=== PATIENT | male | born 1975 | race Caucasian/White ===

== ENCOUNTER 2024-10-10 14:52 | Inpatient (IN) | payer MEDICAID, SELFPAY ==
[2024-10-10 15:13] VITALS: BP 138/85; PULSE 87; RESP 20; TEMP 37.2; O2SAT 95; BMI 33.9
--- NOTE | 2024-10-10 15:20 | PC.NURSE ---
patient presents to ED via triage with his brother, brought back to pod for triage and change management analyst. patient changed over by ED security and this RN, patient changed into hospital attire. patient belongings secured and placed into locker 2. patient is calm and cooperative, states he was recently admitted at [facility] for inpatient psych care. patient states he was dc on haldol and depakote, states he is feeling increasingly anxious, which is making him feel hopeless and negatively impacting his life. patient was accompanied by his brother Rolando ([phone]) who gave collateral information that prior to inpatient hospitalization patient was manic and stating the tv was telling him things. patients brother explained patient left [facility]a from [facility] and got into his car and drove to [place]. while in [place] patient undressed himself and got into someones trailer that had a bed in it to keep warm patient was then brought to [facility]. patients brother is concerned that patient requested help today and stated he cant live like this anymore patient denied SI/HI, denies drug and alcohol use.
[2024-10-10 15:35] LABS: MANUAL DIFF FLAG NO
[2024-10-10 15:36] LABS: Basophils Absolute Auto 0.1 X10*3/uL (0.0-0.2); Basophils Percent Auto 0.8 % (0-2); Eosinophils Absolute Auto 0.1 X10*3/uL (0.0-0.4); Hematocrit 45.6 % (42.0-52.0); Hemoglobin 15.6 g/dl (14.0-18.0); Imm Gran Abs Auto 0.07 X10*3/uL (0.00-0.03); Imm Gran Pct Auto 0.6 % (0.0-0.4); Lymphocytes Absolute Auto 2.9 X10*3/uL (1.2-4.9); Lymphocytes Percent Auto 25.2 % (20-40); Mean Corpuscular HGB Conc 34.2 g/dl (31.0-36.0); Mean Corpuscular Hemoglobin 30.2 pg (27.0-33.0); Mean Corpuscular Volume 88.2 fL (80.0-98.0); Mean Platelet Volume 9.6 fL (9.4-12.4); Monocytes Absolute Auto 0.9 X10*3/uL (0.1-1.2); Monocytes Percent Auto 7.5 % (2-11); Neutrophils Absolute Auto 7.4 x10*3/uL (2.0-8.3); Neutrophils Percent Auto 64.9 % (45-73); Platelet Count 267 X10*3/uL (160-400); Red Blood Count 5.17 X10*6/uL (4.60-5.80); Red Cell Distribution Width 12.7 % (11.0-16.0); White Blood Count 11.4 X10*3/uL (4.8-10.8)
--- NOTE | 2024-10-10 15:40 | ED.PSYCH ---
HPI - Psych General Chief Complaint: Psychiatric Symptoms Stated Complaint: mental health Time Seen by Provider: 10/10/24 15:34 Source: patient Mode of arrival: ambulatory Limitations: no limitations History of Present Illness ED Provider: SCOTT Matthews HPI Narrative: This is a 49-year-old male history of meredith, bipolar disorder presents with concerns of anxiety, hopelessness and he feels like this is starting to affect his daily life. He reports he was recently inpatient at both [facility] and [facility] for manic episodes. This feels similar. Not suicidal or homicidal. Denies alcohol, tobacco, drugs. Denies any medical complaints. Related Data Allergies Allergy/AdvReac Type Severity Reaction Status Date / Time No Known Allergies Allergy Verified 10/10/24 15:18 [No Known Allergies*] Review of Systems Review of Systems: Yes all other systems are reviewed and are negative [facility] Past Medical History Attestation statement: The following information was validated with the patient. Source: old records reviewed and nursing notes reviewed Social History Social History Alcohol intake: never Smoked in Last 30 Days: No Use of substances other than those prescribed or required for medical reasons: No Advance Directives: No Advance Directives Information Provided: No Do you have a plan to hurt others: No Plan Physical Exam Vital Signs: Vital Signs: Last Vital Signs Temp 99 F 10/10/24 15:13 Pulse 87 10/10/24 15:13 Resp 20 10/10/24 15:13 BP 138/85 10/10/24 15:13 Pulse Ox 95 10/10/24 15:13 O2 Del Method Room Air 10/10/24 15:13 BMI result Body Mass Index 33.9 vss Appearance: Alert.? Oriented X3.? No acute distress.? Head: Normocephalic, atraumatic, no step-offs or deformities Eyes: Pupils equal, round and reactive to light.? ENT: Pharynx normal.? Neck: Normal inspection.? Neck supple.? CVS: Normal heart rate and rhythm.? Pulses normal.? Respiratory: No respiratory distress.? Breath sounds normal.? Abdomen: Soft and nontender.? Skin: Skin warm and dry.? Normal skin color.? Normal skin turgor.? Extremities: No lower extremity edema.? No calf ttp. 5/5 strength to bilateral upper and lower extremities Neuro: Oriented X 3.? No motor deficit.? No sensory deficit. CN 2-12 intact Course Reevaluation(s) Reevaluation #1: CBC with leukocytosis nonspecific and no left shift unlikely from infection this is likely reactive. Chemistry no acute findings eating intervention. Ethanol negative. Urine and urine toxicology pending. Time: 15:45 Reevaluation #2: UA clean. U tox + for marijuana. At this time patient will be placed in physician obs to allow more time to be evaluated by care team. Time: 16:56 Medications Administered Discontinued Medications Generic Name Dose Route Start Last Admin Trade Name Freq PRN Reason Stop Dose Admin Lorazepam 1 mg 10/10/24 16:16 10/10/24 16:26 Lorazepam 1 Mg Tablet PO 10/10/24 16:17 1 mg ONCE ONE Administration Medical Decision Making Medical Decision Making [facility] Narrative: 1543 49-year-old male presents with feeling anxious and hopeless multiple psych admissions recently. Physical exam benign History and physical exam concerning for meredith versus bipolar disorder versus schizophrenia versus anxiety and depression. Unlikely metabolic derangements. Plan medical clearance evaluation by care team Differential Diagnosis Differential Diagnoses: The differential diagnosis associated with the presentation includes (History and physical exam concerning for meredith versus bipolar disorder versus schizophrenia versus anxiety and depression. Unlikely metabolic derangements.) Admission/Observation Consideration of admission/observation: Escalation of care including admission/observation considered (possible ) Consult Healthcare Provider Management of the patient was discussed with: Behavioral Health Provider Lab Data [facility] Lab Attestation statement: I reviewed the patient's lab results. 10/10/24 15:29 10/10/24 15:29 Labs: Lab Results 10/10/24 10/10/24 Range/Units 15:29 15:36 WBC 11.4 H (4.8-10.8) X10*3/uL RBC 5.17 (4.60-5.80) X10*6/uL Hgb 15.6 (14.0-18.0) g/dl Hct 45.6 (42.0-52.0) % MCV 88.2 (80.0-98.0) fL MCH 30.2 (27.0-33.0) pg MCHC 34.2 (31.0-36.0) g/dl RDW 12.7 (11.0-16.0) % Plt Count 267 (160-400) X10*3/uL MPV 9.6 (9.4-12.4) fL Immature Gran % (Auto) 0.6 H (0.0-0.4) % Neut % (Auto) 64.9 (45-73) % Lymph % (Auto) 25.2 (20-40) % [place] % (Auto) 7.5 (2-11) % Eos % (Auto) 1.0 (0-4) % Baso % (Auto) 0.8 (0-2) % Lymph # (Auto) 2.9 (1.2-4.9) X10*3/uL [place] # (Auto) 0.9 (0.1-1.2) X10*3/uL Eos # (Auto) 0.1 (0.0-0.4) X10*3/uL Baso # (Auto) 0.1 (0.0-0.2) X10*3/uL Abs Immat Gran (auto) 0.07 H (0.00-0.03) X10*3/uL Absolute Neuts (auto) 7.4 (2.0-8.3) x10*3/uL Absolute Nucleated RBC 0.000 (0.0-0.012) X10*3/uL Nucleated RBC % (auto) 0.0 (0.0-0.2) /100WBC Sodium 140 (135-145) mmol/L Potassium 4.0 (3.3-5.1) mmol/L Chloride 107 (96-108) mmol/L Carbon Dioxide 22 (22-29) mmol/L Anion Gap 15 (12-20) BUN 8 L (9-16) mg/dL Creatinine 0.85 (0.5-1.4) mg/dL Estim Creat Clear Calc 138.1 Estimated GFR > 60 Random Glucose 91 (60-115) mg/dL Calcium 9.7 (8.4-10.2) mg/dL Total Bilirubin 0.7 (0.0-1.0) mg/dL AST 25 (5-37) U/L Total Protein 7.9 (6.5-8.0) g/dL Albumin 4.4 (3.5-5.0) g/dL Urine Color Yellow Urine Appearance Clear Urine pH 7.5 (5.0-9.0) Ur Specific [place] 1.020 (1.005-1.025) Urine Protein Negative (Neg-Trace) mg/dL Urine Glucose (UA) Negative (Negative) mg/dL Urine Ketones Trace (Negative) mg/dL Urine Blood Negative (Negative) Urine Nitrite Negative (Negative) Ur Leukocyte Esterase Negative (Negative) Urine Opiates Screen Not Detected (Not Detect) Ur Buprenorphine Scrn Not Detected (Not Detect) ng/mL Ur Oxycodone Screen Not Detected (Not Detect) ng/mL Urine Methadone Screen Not Detected (Not Detect) ng/mL Urine Fentanyl Screen Not Detected (Not Detect) Ur Barbiturates Screen Not Detected (Not Detect) Ur Phencyclidine Scrn Not Detected (Not Detect) Ur Amphetamines Screen Not Detected (Not Detect) U Benzodiazepines Scrn Not Detected (Not Detect) Urine Cocaine Screen Not Detected (Not Detect) U Marijuana (THC) Screen POSITIVE H (Not Detect) Ethyl Alcohol < 10 mg/dL Chronic Conditions Patient?s care impacted by: Other ( mental health d/o) Discharge Plan Discharge Clinical Impression: Depression, Acute anxiety Patient Disposition: Still a Patient Interventions: Mckean-Suicide Risk Severity Scale Last Done: 10/10/24 15:37 Print Language: Polish
--- NOTE | 2024-10-10 15:49 | MHC.EDTECH ---
late entry: pt changed over into [facility] gown, lab work drawn, urine given, vital signs taken
[2024-10-10 15:55] LABS: Appearance Urine Clear; Color Urine Yellow; Glucose Urine UA Negative (Negative); Leukocyte Esterase Urine Negative (Negative); Nitrite Urine Negative (Negative); PH 7.5 (5.0-9.0); Urine Blood Negative (Negative); Urine Ketones Trace mg/dL (Negative); Urine Protein Negative (Neg-Trace)
[2024-10-10 16:10] LABS: Amphetamine Screen Urine Not Detected (Not Detect); Barbiturates, Urine Not Detected (Not Detect); Benzodiazepines Screen Urine Not Detected (Not Detect); Buprenorphine Scr Not Detected (Not Detect); Cannabinoid Screen Urine POSITIVE (Not Detect); Cocaine Screen Urine Not Detected (Not Detect); Fentanyl, urine Not Detected (Not Detect); Methadone Screen, Urine Not Detected (Not Detect); Opiate Screen Urine Not Detected (Not Detect); Oxycodone Screen Urine Not Detected (Not Detect); Phencyclidine Screen Urine Not Detected (Not Detect)
[2024-10-10 16:22] LABS: Albumin Level 4.4 g/dL (3.5-5.0); Anion Gap 15 (12-20); Aspartate Amino Transferase 25 U/L (5-37); Bilirubin Total 0.7 mg/dL (0.0-1.0); Blood Urea Nitrogen 8 mg/dL (9-16); Calcium 9.7 mg/dL (8.4-10.2); Carbon Dioxide 22 mmol/L (22-29); Chloride 107 mmol/L (96-108); Creatinine Clr Calc Pharmacy 138.1; Estimated Glomerular Filt Rate > 60; Ethanol < 10 mg/dL; Glucose Random 91 mg/dL (60-115); Sodium 140 mmol/L (135-145); Total Protein 7.9 g/dL (6.5-8.0)
[2024-10-10] MEDS: LORazepam 1 MG TABLET PO (16:26)
--- NOTE | 2024-10-10 17:05 | PC.NURSE ---
attempted patient med rec, patient unsure of dosing. SCOTT pruitt aware, reaching out to [facility] for collateral info on patient
[2024-10-10 17:15] LABS: Alanine Aminotransferase 34 U/L (0-40); Alkaline Phosphatase 71 U/L (39-117)
[2024-10-10] MEDS: traZODone HCL 100 MG TABLET PO (20:20)
[2024-10-10] MEDS: diphenhydrAMINE HCL 25 MG CAPSULE 50 MG PO (22:22)
[2024-10-11 00:09] VITALS: BP 116/81; PULSE 72; RESP 16; TEMP 37.1; O2SAT 98
[2024-10-11] MEDS: LORazepam 1 MG TABLET 2 MG PO (00:43)
--- NOTE | 2024-10-11 06:04 | PC.NURSE ---
Patient just went to sleep at 0345, Ativan 2 mg administered with some effectiveness, appears depressed, med rec attempted but history unobtainable at this time, ED primary teaching assistant is trying to obtain medical record from [facility]. Patient was assessed by care team, disposition is section 12 inpatient bed search, 15 minutes safety check, no behavior and safety concerns, VSS, will continue to monitor
--- NOTE | 2024-10-11 07:07 | PC.NURSE ---
Assumed care of patient at 0645, patient appears to be sleeping, respirations even and unlabored, no apparent distress noted. Continue plan of care for IPLOC
[2024-10-11 14:00] VITALS: RESP 14
--- NOTE | 2024-10-11 14:05 | PC.NURSE ---
pt becoming agitated that he has been waiting since yesterday for a bed. this RN attempted to explain to this RN the bedsearch process however, patient began walking away. Patient states well, I am just going to refuse care and not do any of the things you all need me to do so I can get going . this RN educated patient regarding S12, pt frustrated that he is on a S12 stating that he did not know someone put him on one. Patient requesting to speak with a provider regarding leaving
[2024-10-11 15:30] VITALS: BP 122/81; PULSE 91; RESP 15; TEMP 36.9; O2SAT 95; BMI 37.8
[2024-10-11 17:07] LABS: Albumin Level 4.4 g/dL (3.5-5.0); Anion Gap 13 (12-20); Aspartate Amino Transferase 22 U/L (5-37); Bilirubin Total 0.7 mg/dL (0.0-1.0); Blood Urea Nitrogen 11 mg/dL (9-16); Calcium 9.6 mg/dL (8.4-10.2); Carbon Dioxide 27 mmol/L (22-29); Chloride 105 mmol/L (96-108); Estimated Glomerular Filt Rate > 60; Glucose Random 96 mg/dL (60-115); Potassium 4.1 mmol/L (3.3-5.1); Sodium 141 mmol/L (135-145); Total Protein 7.8 g/dL (6.5-8.0)
--- NOTE | 2024-10-11 18:01 | PC.NURSE ---
Pt arrived on the unit at 1523 via wheelchair. He is here on a CV. Pt was recently in [facility], left [place], and went to [place]. He was found in a trailer, sleeping in someone else's bed. During patient's admission, he was polite and difficult to engage. He had limited information for this physician underwriter. I am here because I can't sleep at night, and I have stopped taking care of myself because I can't get out of bed. Pt reports a recent 40lb weight loss, d/t depression. Nutritional consult placed. My head feels like thick soup . Skin check reveled no broken or marked skin. Flu shot refused. Med rec incomplete. Pt reports that his pharmacy is [facility], [facility]. That pharmacy reports that this patient has no RX's with them.
[2024-10-11 20:00] VITALS: RESP 18
[2024-10-11 21:33] LABS: Alanine Aminotransferase 35 U/L (0-40); Alkaline Phosphatase 72 U/L (39-117)
[2024-10-12 07:52] VITALS: BP 108/71; PULSE 85; RESP 14; TEMP 36.6; O2SAT 98
[2024-10-12 08:49] LABS: Cholesterol 165 mg/dL (<200); HDL Cholesterol 37 mg/dL (>40); LDL Cholesterol Calculated 103 mg/dL (<100); Triglycerides 128 mg/dL (<150)
--- NOTE | 2024-10-12 09:04 | HO.PSYADMNOT ---
HPI Date of Service: 10/12/24 Chief Complaint: crisis Sources of Information: patient interviewed, chart reviewed and crisis/core team assessment reviewed HPI Subjective Notes: Hu[place]h Warning and Conditional Voluntary Narrative: Patient is a 49-year-old male with history of unspecified mood disorder who self presented to [facility] ER due to increased anxiety, hopelessness secondary to recent medication changes. Per crisis report, patient was recently discharged from [facility] and was then admitted to [facility] inpatient unit for 2 weeks. Patient reports he was admitted twice recently due to manic behaviors . Patient's brother stated patient left [facility], got into his car and drove to [place]. While in [place], patient undressed himself and got into someone's trailer and went into their bed to keep warm; patient was then brought to [facility]. Patient reports he has been experiencing extreme anxiety, restlessness, shakiness since discharge. He reports poor sleep with only receiving 1-2 hours a night. denies SI/HI. No history of suicide attempts. Denies any substance use. Utox positive for cannabis. Per patient's brother, the past month is the 1st time patient began experiencing psychiatric symptoms. A month ago patient began sporadically posting status's that were bizarre online. Patient telling family that a movie told him to make a play. 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 He also began following police and punched and scratched a window on a police cruiser. Patient has numerous bizarre behaviors (please read crisis report for more examples). During admission assessment, patient presents alert and oriented x3. Calm and cooperative. Patient reports feeling anxious ; patient stated, I had a manic episode for 2 weeks. It was my 1st hospitalization; then I went to [place]. I went home and felt like I could not get my thoughts together. I just kept waking up with anxiety and depression. I then came here after reaching out to my family . Patient reports he can not recall any other names of the medications that he was previously prescribed at the other 2 hospitalizations. Prescription monitoring does not show any prescriptions. Patient is able to recall certain bizarre behaviors mentioned in crisis report however, reports he does not know why he behaved that way. Patient reports he does not have a history of a mental illness and symptoms began a month ago; he is unaware of any precipitant. Patient reports he does not have outpatient psychiatric providers. Denies SI/HI/VH/AH. Patient signed ITZ for [facility] and [facility] to obtain collateral. Past Psychiatric History: Two recent inpatient psychiatric admissions ([facility] and [facility]) Does not have outpatient psychiatric providers Currently not on any psychiatric medications Denies history of self-injurious behavior or suicide attempts. Medical Evaluation Reviewed: Yes PMFSH Family History: Denies Social History: Lives alone. . Two kids (12 and 25 y/o). Unemployed. Associates degree. Substance History: Denies Trauma History: Denies Diagnostics Vital Signs (24Hr): Vital Signs - 24 hr 10/11/24 14:00 10/11/24 15:30 10/11/24 20:00 Temperature 98.5 F Pulse Rate 91 Respiratory Rate 14 15 18 Blood Pressure 122/81 Pulse Oximetry 95 Oxygen Delivery Method Room Air 10/12/24 07:52 Temperature 97.9 F Pulse Rate 85 Respiratory Rate 14 Blood Pressure 108/71 Pulse Oximetry 98 Oxygen Delivery Method Room Air BMI result Body Mass Index 37.8 Labs 10/10/24 15:29 10/11/24 16:19 Labs: Laboratory Results - last 48 hr 10/10/24 10/10/24 10/11/24 15:29 15:36 16:19 WBC 11.4 H RBC 5.17 Hgb 15.6 Hct 45.6 MCV 88.2 MCH 30.2 MCHC 34.2 RDW 12.7 Plt Count 267 MPV 9.6 Immature Gran % (Auto) 0.6 H Neut % (Auto) 64.9 Lymph % (Auto) 25.2 [place] % (Auto) 7.5 Eos % (Auto) 1.0 Baso % (Auto) 0.8 Lymph # (Auto) 2.9 [place] # (Auto) 0.9 Eos # (Auto) 0.1 Baso # (Auto) 0.1 Abs Immat Gran (auto) 0.07 H Absolute Neuts (auto) 7.4 Absolute Nucleated RBC 0.000 Nucleated RBC % (auto) 0.0 Sodium 140 141 Potassium 4.0 4.1 Chloride 107 105 Carbon Dioxide 22 27 Anion Gap 15 13 BUN 8 L 11 Creatinine 0.85 0.97 Estim Creat Clear Calc 138.1 128.0 Estimated GFR > 60 > 60 Random Glucose 91 96 Calcium 9.7 9.6 Total Bilirubin 0.7 0.7 AST 25 22 ALT 34 35 Alkaline Phosphatase 71 72 Total Protein 7.9 7.8 Albumin 4.4 4.4 Triglycerides Cholesterol LDL Cholesterol, Calc HDL Cholesterol Urine Color Yellow Urine Appearance Clear Urine pH 7.5 Ur Specific [place] 1.020 Urine Protein Negative Urine Glucose (UA) Negative Urine Ketones Trace Urine Blood Negative Urine Nitrite Negative Ur Leukocyte Esterase Negative Urine Opiates Screen Not Detected Ur Buprenorphine Scrn Not Detected Ur Oxycodone Screen Not Detected Urine Methadone Screen Not Detected Urine Fentanyl Screen Not Detected Ur Barbiturates Screen Not Detected Ur Phencyclidine Scrn Not Detected Ur Amphetamines Screen Not Detected U Benzodiazepines Scrn Not Detected Urine Cocaine Screen Not Detected U Marijuana (THC) Screen POSITIVE H Ethyl Alcohol < 10 10/12/24 08:25 WBC RBC Hgb Hct MCV MCH MCHC RDW Plt Count MPV Immature Gran % (Auto) Neut % (Auto) Lymph % (Auto) [place] % (Auto) Eos % (Auto) Baso % (Auto) Lymph # (Auto) [place] # (Auto) Eos # (Auto) Baso # (Auto) Abs Immat Gran (auto) Absolute Neuts (auto) Absolute Nucleated RBC Nucleated RBC % (auto) Sodium Potassium Chloride Carbon Dioxide Anion Gap BUN Creatinine Estim Creat Clear Calc Estimated GFR Random Glucose Calcium Total Bilirubin AST ALT Alkaline Phosphatase Total Protein Albumin Triglycerides 128 Cholesterol 165 LDL Cholesterol, Calc 103 H HDL Cholesterol 37 L Urine Color Urine Appearance Urine pH Ur Specific [place] Urine Protein Urine Glucose (UA) Urine Ketones Urine Blood Urine Nitrite Ur Leukocyte Esterase Urine Opiates Screen Ur Buprenorphine Scrn Ur Oxycodone Screen Urine Methadone Screen Urine Fentanyl Screen Ur Barbiturates Screen Ur Phencyclidine Scrn Ur Amphetamines Screen U Benzodiazepines Scrn Urine Cocaine Screen U Marijuana (THC) Screen Ethyl Alcohol Meds/Allergies Meds Home Medications ?Medication ?Instructions ?Recorded ?Confirmed ?Type Unobtainable 10/11/24 10/11/24 History Allergies Allergies Allergy/AdvReac Type Severity Reaction Status Date / Time No Known Allergies Allergy Verified 10/10/24 15:18 [No Known Allergies*] Mental Status Exam Mental Status Exam Patient Appearance: Well Grooomed Patient Orientation: Person, Place, Time and Situation Level of Consciousness: Awake and Alert Patient Behavior: Appropriate, Cooperative, Anxious and Good Eye Contact Mood Description: Anxious Affect Description: Appropriate Ability to Follow Directions: Good Speech Pattern: Clear and Appropriate Thought Process: Goal Oriented Thought Content: positive for Goal Oriented Depressive Symptoms: Increased Anxiety and Difficulty Sleeping Judgement: Poor Assessment & Plan Assessment & Plan (1) Mood disorder: Status: Acute Code(s): F39 - Unspecified mood [affective] disorder Plan Patient is a 49-year-old male with history of unspecified mood disorder who self presented to [facility] ER due to increased anxiety, hopelessness secondary to recent medication changes. Plan: CV 15 minute safety checks Obtain collateral Start: [place] 300mg PO BID;risks/benefits reviewed. pt agreed to trial. Encourage groups Referral to outpatient psychiatric providers Discharge planning Patient educated on: diagnosis and medication risk/benefits Reason for continued inpatient stay Substantial Risk for: med/psych decompensation Statement Statement: I have reviewed the history and physical and performed a pertinent examination on my patient. No changes have occurred unless specified. If the History and Physical was not performed prior to admission, the Hospitalist's service will be consulted for completing the admission physical. Time Spent With Patient Time: Total time managing care of this patient today _60___ minutes.
[2024-10-12] MEDS: hydrOXYzine HCL 25 MG TABLET PO (12:14)
--- NOTE | 2024-10-12 13:49 | MHC.CLN ---
NUTRITION PATIENT REPORTED 40# WEIGHT LOSS. UNABLE TO CONFIRM WEIGHT LOSS. CURRENT DCDJWU=071.6 KG WITH BMI=37.8. RD WILL FOLLOW UP IN ONE WEEK FOR PO INTAKE.
[2024-10-12] MEDS: OLANZapine 5 MG TABLET PO (17:51)
[2024-10-12 19:50] VITALS: BP 125/72; PULSE 84; RESP 18; TEMP 36.4; O2SAT 97
[2024-10-12] MEDS: traZODone HCL 50 MG TABLET PO (20:07)
[2024-10-12] MEDS: Lithium Carbonate 300 MG CAPSULE PO (20:07)
[2024-10-13 08:00] VITALS: BP 123/77; PULSE 76; RESP 16; TEMP 36.4; O2SAT 98
[2024-10-13] MEDS: Lithium Carbonate 300 MG CAPSULE PO ×2 (09:04→21:52)
--- NOTE | 2024-10-13 11:24 | HO.PSYCHPN ---
Subjective Subjective Date of Service: 10/13/24 Reason For Visit: crisis Subjective Notes: Conditional Voluntary Interim History: Patient was seen and discussed in rounds today. Records and plans were reviewed. He is doing better, is more visible. He continues to endorse depression and anxiety. He is medication compliant. Eating and sleeping adequately. No complaints or side effects. No changes were made today Review of Systems Review of Systems Yes all other systems are reviewed and are negative Mental Status Exam Mental Status Exam Patient Appearance: Well Grooomed Patient Orientation: Person, Place, Time and Situation Level of Consciousness: Awake and Alert Patient Behavior: Appropriate, Cooperative, Anxious and Good Eye Contact Mood Description: Anxious Affect Description: Appropriate Ability to Follow Directions: Good Speech Pattern: Clear and Appropriate Thought Process: Goal Oriented Thought Content: positive for Goal Oriented Depressive Symptoms: Increased Anxiety and Difficulty Sleeping Judgement: Poor Diagnostics Vital Signs (24Hr): Vital Signs - 24 hr 10/12/24 19:50 10/13/24 08:00 Temperature 97.6 F 97.5 F Pulse Rate 84 76 Respiratory Rate 18 16 Blood Pressure 125/72 123/77 Pulse Oximetry 97 98 Oxygen Delivery Method Room Air Room Air BMI result Body Mass Index 37.8 Labs 10/10/24 15:29 10/11/24 16:19 Labs: Laboratory Results - last 48 hr 10/11/24 10/12/24 16:19 08:25 Sodium 141 Potassium 4.1 Chloride 105 Carbon Dioxide 27 Anion Gap 13 BUN 11 Creatinine 0.97 Estim Creat Clear Calc 128.0 Estimated GFR > 60 Random Glucose 96 Calcium 9.6 Total Bilirubin 0.7 AST 22 ALT 35 Alkaline Phosphatase 72 Total Protein 7.8 Albumin 4.4 Triglycerides 128 Cholesterol 165 LDL Cholesterol, Calc 103 H HDL Cholesterol 37 L Medications Medications Current Medications Acetaminophen (Acetaminophen 325 Mg Tablet) 650 mg PO Q6H PRN PRN Reason: Headache/Pain Mild Scale (1-3) Al Hydroxide/Mg Hydroxide (Magnesium Hydrox/Alum Hydrox 30 Ml Oral.Susp) 30 ml PO Q6H PRN PRN Reason: Heartburn/Nausea Hydroxyzine HCl (Hydroxyzine Hcl 25 Mg Tablet) 25 mg PO Q6H PRN PRN Reason: Anxiety Last Admin: 10/12/24 12:14 Dose: 25 mg [place] Carbonate ([place] Carbonate 300 Mg Capsule) 300 mg PO BID LEATHA Last Admin: 10/13/24 09:04 Dose: 300 mg Magnesium Hydroxide (Milk Of Magnesia 30 Ml Oral.Susp) 30 ml PO DAILY PRN PRN Reason: Constipation Nicotine Polacrilex (Nicotine Polacrilex 2 Mg Gum) 4 mg BUCCAL Q2H PRN PRN Reason: Nicotine Cravings Olanzapine (Olanzapine 5 Mg Tablet) 5 mg PO Q4H PRN PRN Reason: agitation Last Admin: 10/12/24 17:51 Dose: 5 mg Trazodone HCl (Trazodone Hcl 50 Mg Tablet) 50 mg PO BEDTIME MRX1 PRN PRN Reason: Insomnia Last Admin: 10/12/24 20:07 Dose: 50 mg Allergies Allergies Allergy/AdvReac Type Severity Reaction Status Date / Time No Known Allergies Allergy Verified 10/10/24 15:18 [No Known Allergies*] Assessment & Plan Assessment & Plan (1) Mood disorder: Status: Acute Code(s): F39 - Unspecified mood [affective] disorder Plan Patient is a 49-year-old male with history of unspecified mood disorder who self presented to [facility] due to increased anxiety, hopelessness secondary to recent medication changes. Plan: CV 15 minute safety checks Obtain collateral Start: [place] 300mg PO BID;risks/benefits reviewed. pt agreed to trial. Encourage groups Referral to outpatient psychiatric providers Discharge planning Reason for continued inpatient stay Substantial Risk for: med/psych decompensation Time Spent With Patient Time: Total time managing care of this patient today ____ minutes.
[2024-10-13 20:00] VITALS: BP 110/61; PULSE 74; RESP 16; TEMP 36.8; O2SAT 97
[2024-10-13] MEDS: traZODone HCL 50 MG TABLET PO (21:52)
[2024-10-14 07:00] VITALS: BMI 37.9
[2024-10-14 07:53] VITALS: BP 103/55; PULSE 76; RESP 16; TEMP 36.7; O2SAT 96
[2024-10-14] MEDS: Lithium Carbonate 300 MG CAPSULE PO (09:03)
[2024-10-14] MEDS: Lithium Carbonate ER 300 MG TABLET.ER PO (14:45)
[2024-10-14 19:43] VITALS: BP 118/72; PULSE 83; RESP 16; TEMP 36.2; O2SAT 97
--- NOTE | 2024-10-14 20:51 | HO.PSYCHPN ---
Subjective Subjective Date of Service: 10/14/24 Reason For Visit: crisis Interim History: calm, cooperative, pleasant. curious about his condition. education provided. agreeable to increase lithium to 600 BID. per staff, taking meds, pacing with headphones. Mental Status Exam Mental Status Exam Narrative: adequately dressed and groomed. cooperative. no PMA/PMR. speech nml rate, amount, loudness, tone, latency. thoughts linear and logical. affect constricted, normo-intense, non-labile. mood euthymic. no SI/HI/AVH expressed. Diagnostics Vital Signs (24Hr): Vital Signs - 24 hr 10/14/24 07:53 Temperature 98.0 F Pulse Rate 76 Respiratory Rate 16 Blood Pressure 103/55 L Pulse Oximetry 96 Oxygen Delivery Method Room Air BMI result Body Mass Index 37.9 Labs 10/10/24 15:29 10/11/24 16:19 Medications Medications Current Medications Acetaminophen (Acetaminophen 325 Mg Tablet) 650 mg PO Q6H PRN PRN Reason: Headache/Pain Mild Scale (1-3) Al Hydroxide/Mg Hydroxide (Magnesium Hydrox/Alum Hydrox 30 Ml Oral.Susp) 30 ml PO Q6H PRN PRN Reason: Heartburn/Nausea Hydroxyzine HCl (Hydroxyzine Hcl 25 Mg Tablet) 25 mg PO Q6H PRN PRN Reason: Anxiety Last Admin: 10/12/24 12:14 Dose: 25 mg [place] Carbonate ([place] Carbonate 300 Mg Capsule) 600 mg PO BID LEATHA Magnesium Hydroxide (Milk Of Magnesia 30 Ml Oral.Susp) 30 ml PO DAILY PRN PRN Reason: Constipation Nicotine Polacrilex (Nicotine Polacrilex 2 Mg Gum) 4 mg BUCCAL Q2H PRN PRN Reason: Nicotine Cravings Olanzapine (Olanzapine 5 Mg Tablet) 5 mg PO Q4H PRN PRN Reason: agitation Last Admin: 10/12/24 17:51 Dose: 5 mg Trazodone HCl (Trazodone Hcl 50 Mg Tablet) 50 mg PO BEDTIME MRX1 PRN PRN Reason: Insomnia Last Admin: 10/13/24 21:52 Dose: 50 mg Allergies Allergies Allergy/AdvReac Type Severity Reaction Status Date / Time No Known Allergies Allergy Verified 10/10/24 15:18 [No Known Allergies*] Assessment & Plan Assessment & Plan (1) Mood disorder: Status: Acute Code(s): F39 - Unspecified mood [affective] disorder Plan Patient is a 49-year-old male with history of unspecified mood disorder who self presented to [facility] [place] ER due to increased anxiety, hopelessness secondary to recent medication changes. 10/12: Start [place] 300mg PO BID;risks/benefits reviewed. pt agreed to trial. Referral to outpatient psychiatric providers. Discharge planning. 10/14: increase lithium to 600 BID to achieve therapeutic serum level. 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 Patient educated on: diagnosis and medication risk/benefits Reason for continued inpatient stay Substantial Risk for: inability to function and rapid decompensation Time Spent With Patient Time: Total time managing care of this patient today __35__ minutes.
[2024-10-14] MEDS: Lithium Carbonate 300 MG CAPSULE 600 MG PO (20:54)
[2024-10-14] MEDS: traZODone HCL 50 MG TABLET PO ×2 (20:55→22:07)
[2024-10-15 08:00] VITALS: BP 110/65; PULSE 88; RESP 16; TEMP 36.9; O2SAT 95
[2024-10-15] MEDS: Lithium Carbonate 300 MG CAPSULE 600 MG PO ×2 (09:04→20:23)
--- NOTE | 2024-10-15 13:28 | HO.PSYCHPN ---
Subjective Subjective Date of Service: 10/15/24 Reason For Visit: crisis Interim History: calm, cooperative, pleasant. thanks for lithium dose increase, says he feels clearer in the head. discuss plan to DC on 10/19, when 3-day notice is up, and check labs that morning. per staff, taking meds, slept 8 hours. Mental Status Exam Mental Status Exam Narrative: adequately dressed and groomed. cooperative. no PMA/PMR. speech nml rate, amount, loudness, tone, latency. thoughts linear and logical. affect flexible, normo-intense, non-labile. mood euthymic. no SI/HI/AVH expressed. Diagnostics Vital Signs (24Hr): Vital Signs - 24 hr 10/14/24 19:43 10/15/24 08:00 Temperature 97.2 F 98.4 F Pulse Rate 83 88 Respiratory Rate 16 16 Blood Pressure 118/72 110/65 Pulse Oximetry 97 95 Oxygen Delivery Method Room Air Room Air BMI result Body Mass Index 37.9 Labs 10/10/24 15:29 10/11/24 16:19 Medications Medications Current Medications Acetaminophen (Acetaminophen 325 Mg Tablet) 650 mg PO Q6H PRN PRN Reason: Headache/Pain Mild Scale (1-3) Al Hydroxide/Mg Hydroxide (Magnesium Hydrox/Alum Hydrox 30 Ml Oral.Susp) 30 ml PO Q6H PRN PRN Reason: Heartburn/Nausea Hydroxyzine HCl (Hydroxyzine Hcl 25 Mg Tablet) 25 mg PO Q6H PRN PRN Reason: Anxiety Last Admin: 10/12/24 12:14 Dose: 25 mg [place] Carbonate ([place] Carbonate 300 Mg Capsule) 600 mg PO BID LEATHA Last Admin: 10/15/24 09:04 Dose: 600 mg Magnesium Hydroxide (Milk Of Magnesia 30 Ml Oral.Susp) 30 ml PO DAILY PRN PRN Reason: Constipation Nicotine Polacrilex (Nicotine Polacrilex 2 Mg Gum) 4 mg [place]CCAL Q2H PRN PRN Reason: Nicotine Cravings Olanzapine (Olanzapine 5 Mg Tablet) 5 mg PO Q4H PRN PRN Reason: agitation Last Admin: 10/12/24 17:51 Dose: 5 mg Trazodone HCl (Trazodone Hcl 50 Mg Tablet) 50 mg PO BEDTIME MRX1 PRN PRN Reason: Insomnia Last Admin: 10/14/24 22:07 Dose: 50 mg Allergies Allergies Allergy/AdvReac Type Severity Reaction Status Date / Time No Known Allergies Allergy Verified 10/10/24 15:18 [No Known Allergies*] Assessment & Plan Assessment & Plan (1) Mood disorder: Status: Acute Code(s): F39 - Unspecified mood [affective] disorder Plan Patient is a 49-year-old male with history of unspecified mood disorder who self presented to [facility] due to increased anxiety, hopelessness secondary to recent medication changes. 10/12: Start [place] 300mg PO BID;risks/benefits reviewed. pt agreed to trial. Referral to outpatient psychiatric providers. Discharge planning. 10/14: increase lithium to 600 BID to achieve therapeutic serum level. 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 10/15: feeling improved on increased lithium dosing. continue current mgmt. check labs 10/19, likely DC same day as 3-day notice matures 10/19. Reason for continued inpatient stay Substantial Risk for: rapid decompensation Time Spent With Patient Time: Total time managing care of this patient today __25__ minutes.
[2024-10-15 19:17] VITALS: BP 119/80; PULSE 85; RESP 18; TEMP 36.7; O2SAT 97
[2024-10-16 08:00] VITALS: BP 113/71; PULSE 73; RESP 16; TEMP 36.6; O2SAT 96
[2024-10-16] MEDS: Lithium Carbonate 300 MG CAPSULE 600 MG PO ×2 (08:14→20:37)
--- NOTE | 2024-10-16 10:44 | P.PNPSI_ITS ---
Subjective Subjective Date of Service: 10/16/24 Reason For Visit: crisis Interim History: Patient seen and discussed. He is feeling thankful for the change in his medications and introduction of Li. It's so good when you get the right diagnosis and medications. He is calm, cooperative, pleasant. Per primary team, plan is to DC on 10/19 after Li level when 3-day notice is up, Slept 8 hours. No SI/AVH. Review of Systems Review of Systems Yes all other systems are reviewed and are negative Constitutional: Reports as per HPI Eyes: Reports as per HPI Reports as per HPI Cardiovascular: Reports as per HPI Respiratory: Reports as per HPI Gastrointestinal: Reports as per HPI Genitourinary: Reports as per HPI Musculoskeletal: Reports as per HPI Skin/Breast: Reports as per HPI Reports as per HPI Psychiatric: Reports as per HPI Endocrine: Reports as per HPI Hematologic/Lymphatic: Reports as per HPI Allergic/Immunologic: Reports as per HPI Mental Status Exam Mental Status Exam Narrative: adequately dressed and groomed. cooperative. no PMA/PMR. speech nml rate, amount, loudness, tone, latency. thoughts linear and logical. affect flexible, normo-intense, non-labile. mood euthymic. no SI/HI/AVH expressed. Patient Appearance: Well Grooomed Patient Orientation: Person, Place, Time and Situation Level of Consciousness: Awake and Alert Patient Behavior: Appropriate, Cooperative, Anxious and Good Eye Contact Mood Description: Anxious Affect Description: Appropriate Ability to Follow Directions: Good Speech Pattern: Clear and Appropriate Diagnostics Vital Signs (24Hr): Vital Signs - 24 hr 10/15/24 19:17 10/16/24 08:00 Temperature 98.1 F 97.9 F Pulse Rate 85 73 Respiratory Rate 18 16 Blood Pressure 119/80 113/71 Pulse Oximetry 97 96 Oxygen Delivery Method Room Air Room Air BMI result Body Mass Index 37.9 Labs 10/10/24 15:29 10/11/24 16:19 Medications Medications Current Medications Acetaminophen (Acetaminophen 325 Mg Tablet) 650 mg PO Q6H PRN PRN Reason: Headache/Pain Mild Scale (1-3) Al Hydroxide/Mg Hydroxide (Magnesium Hydrox/Alum Hydrox 30 Ml Oral.Susp) 30 ml PO Q6H PRN PRN Reason: Heartburn/Nausea Hydroxyzine HCl (Hydroxyzine Hcl 25 Mg Tablet) 25 mg PO Q6H PRN PRN Reason: Anxiety Last Admin: 10/12/24 12:14 Dose: 25 mg [place] Carbonate ([place] Carbonate 300 Mg Capsule) 600 mg PO BID LEATHA Last Admin: 10/16/24 08:14 Dose: 600 mg Magnesium Hydroxide (Milk Of Magnesia 30 Ml Oral.Susp) 30 ml PO DAILY PRN PRN Reason: Constipation Nicotine Polacrilex (Nicotine Polacrilex 2 Mg Gum) 4 mg BUCCAL Q2H PRN PRN Reason: Nicotine Cravings Olanzapine (Olanzapine 5 Mg Tablet) 5 mg PO Q4H PRN PRN Reason: agitation Last Admin: 10/12/24 17:51 Dose: 5 mg Trazodone HCl (Trazodone Hcl 50 Mg Tablet) 50 mg PO BEDTIME MRX1 PRN PRN Reason: Insomnia Last Admin: 10/14/24 22:07 Dose: 50 mg Allergies Allergies Allergy/AdvReac Type Severity Reaction Status Date / Time No Known Allergies Allergy Verified 10/10/24 15:18 [No Known Allergies*] Assessment & Plan Assessment & Plan (1) Mood disorder: Status: Acute Code(s): F39 - Unspecified mood [affective] disorder Plan Patient is a 49-year-old male with history of unspecified mood disorder who self presented to [facility] ER due to increased anxiety, hopelessness secondary to recent medication changes. 10/12: Start [place] 300mg PO BID;risks/benefits reviewed. pt agreed to trial. Referral to outpatient psychiatric providers. Discharge planning. 10/14: increase lithium to 600 BID to achieve therapeutic serum level. 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 10/15: feeling improved on increased lithium dosing. continue current mgmt. check labs 10/19, likely DC same day as 3-day notice matures 10/19. 10/16: Continue current management and treatment plan. Reason for continued inpatient stay Substantial Risk for: harm to self, inability to function and rapid decompensation Time Spent With Patient Time: Total time managing care of this patient today ____ minutes.
[2024-10-16 20:00] VITALS: BP 120/76; PULSE 89; RESP 18; TEMP 36.9; O2SAT 94
[2024-10-17 07:25] VITALS: BP 120/71; PULSE 75; RESP 14; TEMP 36.5; O2SAT 95
[2024-10-17] MEDS: Lithium Carbonate 300 MG CAPSULE 600 MG PO ×2 (08:12→20:32)
--- NOTE | 2024-10-17 10:00 | HO.PSYCHPN ---
Subjective Subjective Date of Service: 10/17/24 Reason For Visit: crisis Interim History: Patient seen and discussed. Remains stable and thankful for the care he has received and the medications he is taking. Feels improved. Calm, cooperative, pleasant, social with peers. Per primary team, plan is to DC on 10/19 after Li level when 3-day notice is up, Slept 8 hours. No SI/AVH. Review of Systems Review of Systems Yes all other systems are reviewed and are negative Constitutional: Reports as per HPI Eyes: Reports as per HPI Reports as per HPI Cardiovascular: Reports as per HPI Respiratory: Reports as per HPI Gastrointestinal: Reports as per HPI Genitourinary: Reports as per HPI Musculoskeletal: Reports as per HPI Skin/Breast: Reports as per HPI Reports as per HPI Psychiatric: Reports as per HPI Endocrine: Reports as per HPI Hematologic/Lymphatic: Reports as per HPI Allergic/Immunologic: Reports as per HPI Mental Status Exam Mental Status Exam Narrative: adequately dressed and groomed. cooperative. no PMA/PMR. speech nml rate, amount, loudness, tone, latency. thoughts linear and logical. affect flexible, normo-intense, non-labile. mood euthymic. no SI/HI/AVH expressed. Patient Appearance: Well Grooomed Patient Orientation: Person, Place, Time and Situation Level of Consciousness: Awake and Alert Patient Behavior: Appropriate, Cooperative, Anxious and Good Eye Contact Mood Description: Anxious Affect Description: Appropriate Ability to Follow Directions: Good Speech Pattern: Clear and Appropriate Diagnostics Vital Signs (24Hr): Vital Signs - 24 hr 10/16/24 20:00 10/17/24 07:25 Temperature 98.4 F 97.7 F Pulse Rate 89 75 Respiratory Rate 18 14 Blood Pressure 120/76 120/71 Pulse Oximetry 94 95 Oxygen Delivery Method Room Air Room Air BMI result Body Mass Index 37.9 Labs 10/10/24 15:29 10/11/24 16:19 Medications Medications Current Medications Acetaminophen (Acetaminophen 325 Mg Tablet) 650 mg PO Q6H PRN PRN Reason: Headache/Pain Mild Scale (1-3) Al Hydroxide/Mg Hydroxide (Magnesium Hydrox/Alum Hydrox 30 Ml Oral.Susp) 30 ml PO Q6H PRN PRN Reason: Heartburn/Nausea Hydroxyzine HCl (Hydroxyzine Hcl 25 Mg Tablet) 25 mg PO Q6H PRN PRN Reason: Anxiety Last Admin: 10/12/24 12:14 Dose: 25 mg [place] Carbonate ([place] Carbonate 300 Mg Capsule) 600 mg PO BID LEATHA Last Admin: 10/17/24 08:12 Dose: 600 mg Magnesium Hydroxide (Milk Of Magnesia 30 Ml Oral.Susp) 30 ml PO DAILY PRN PRN Reason: Constipation Nicotine Polacrilex (Nicotine Polacrilex 2 Mg Gum) 4 mg BUCCAL Q2H PRN PRN Reason: Nicotine Cravings Olanzapine (Olanzapine 5 Mg Tablet) 5 mg PO Q4H PRN PRN Reason: agitation Last Admin: 10/12/24 17:51 Dose: 5 mg Trazodone HCl (Trazodone Hcl 50 Mg Tablet) 50 mg PO BEDTIME MRX1 PRN PRN Reason: Insomnia Last Admin: 10/14/24 22:07 Dose: 50 mg Allergies Allergies Allergy/AdvReac Type Severity Reaction Status Date / Time No Known Allergies Allergy Verified 10/10/24 15:18 [No Known Allergies*] Assessment & Plan Assessment & Plan (1) Mood disorder: Status: Acute Code(s): F39 - Unspecified mood [affective] disorder Plan Patient is a 49-year-old male with history of unspecified mood disorder who self presented to [facility] [place] [facility] due to increased anxiety, hopelessness secondary to recent medication changes. 10/12: Start [place] 300mg PO BID;risks/benefits reviewed. pt agreed to trial. Referral to outpatient psychiatric providers. Discharge planning. 10/14: increase lithium to 600 BID to achieve therapeutic serum level. 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 10/15: feeling improved on increased lithium dosing. continue current mgmt. check labs 10/19, likely DC same day as 3-day notice matures 10/19. 10/16: Continue current management and treatment plan. 10/17: Continue current management and treatment plan. Reason for continued inpatient stay Substantial Risk for: inability to function and rapid decompensation Time Spent With Patient Time: Total time managing care of this patient today ____ minutes.
[2024-10-17 20:00] VITALS: BP 121/75; PULSE 71; RESP 18; TEMP 36.7; O2SAT 98
[2024-10-17] MEDS: traZODone HCL 50 MG TABLET PO (23:14)
[2024-10-18] MEDS: traZODone HCL 50 MG TABLET PO (00:16)
[2024-10-18] MEDS: hydrOXYzine HCL 25 MG TABLET PO (00:16)
[2024-10-18 08:00] VITALS: BP 91/50; PULSE 69; RESP 16; TEMP 36.8; O2SAT 95
[2024-10-18] MEDS: Lithium Carbonate 300 MG CAPSULE 600 MG PO ×2 (08:52→20:59)
--- NOTE | 2024-10-18 09:44 | HO.PSYCHPN ---
Subjective Subjective Date of Service: 10/18/24 Reason For Visit: crisis Subjective Notes: 3 Day Interim History: Active on unit, keeping to self. listening to music on unit headphones. patient reports feeling ready to go home ; pt stated, I'm absolutely going to keep taking my meds. I can't do those things I was doing again . denies any side effects from medication. denies SI/HI/VH/AH. pt reports sleeping well. Medication Compliance: Yes Side effects from medications: No Attending Groups: No Review of Systems Constitutional: Reports as per HPI Eyes: Reports as per HPI Reports as per HPI Cardiovascular: Reports as per HPI Respiratory: Reports as per HPI Gastrointestinal: Reports as per HPI Genitourinary: Reports as per HPI Musculoskeletal: Reports as per HPI Skin/Breast: Reports as per HPI Reports as per HPI Psychiatric: Reports as per HPI Endocrine: Reports as per HPI Hematologic/Lymphatic: Reports as per HPI Allergic/Immunologic: Reports as per HPI Mental Status Exam Mental Status Exam Patient Appearance: Appropriate Patient Orientation: Person, Place, Time and Situation Level of Consciousness: Awake and Alert Patient Behavior: Appropriate, Cooperative and Good Eye Contact Mood Description: Calm Affect Description: Calm Ability to Follow Directions: Good Speech Pattern: Clear and Appropriate Hallucinations: None Delusions: Not Present Thought Process: Intact Thought Content: positive for Intact Judgement: Fair Diagnostics Vital Signs (24Hr): Vital Signs - 24 hr 10/17/24 20:00 10/18/24 08:00 Temperature 98.1 F 98.2 F Pulse Rate 71 69 Respiratory Rate 18 16 Blood Pressure 121/75 91/50 L Pulse Oximetry 98 95 Oxygen Delivery Method Room Air Room Air BMI result Body Mass Index 37.9 Labs 10/10/24 15:29 10/11/24 16:19 Medications Medications Current Medications Acetaminophen (Acetaminophen 325 Mg Tablet) 650 mg PO Q6H PRN PRN Reason: Headache/Pain Mild Scale (1-3) Al Hydroxide/Mg Hydroxide (Magnesium Hydrox/Alum Hydrox 30 Ml Oral.Susp) 30 ml PO Q6H PRN PRN Reason: Heartburn/Nausea Hydroxyzine HCl (Hydroxyzine Hcl 25 Mg Tablet) 25 mg PO Q6H PRN PRN Reason: Anxiety Last Admin: 10/18/24 00:16 Dose: 25 mg [place] Carbonate ([place] Carbonate 300 Mg Capsule) 600 mg PO BID LEATHA Last Admin: 10/18/24 08:52 Dose: 600 mg Magnesium Hydroxide (Milk Of Magnesia 30 Ml Oral.Susp) 30 ml PO DAILY PRN PRN Reason: Constipation Nicotine Polacrilex (Nicotine Polacrilex 2 Mg Gum) 4 mg BUCCAL Q2H PRN PRN Reason: Nicotine Cravings Olanzapine (Olanzapine 5 Mg Tablet) 5 mg PO Q4H PRN PRN Reason: agitation Last Admin: 10/12/24 17:51 Dose: 5 mg Trazodone HCl (Trazodone Hcl 50 Mg Tablet) 50 mg PO BEDTIME MRX1 PRN PRN Reason: Insomnia Last Admin: 10/18/24 00:16 Dose: 50 mg Allergies Allergies Allergy/AdvReac Type Severity Reaction Status Date / Time No Known Allergies Allergy Verified 10/10/24 15:18 [No Known Allergies*] Assessment & Plan Assessment & Plan (1) Mood disorder: Status: Acute Code(s): F39 - Unspecified mood [affective] disorder Plan Patient is a 49-year-old male with history of unspecified mood disorder who self [place] [facility] [place] due to increased anxiety, hopelessness secondary to recent medication changes. 10/12: Start [place] 300mg PO BID;risks/benefits reviewed. pt agreed to trial. Referral to outpatient psychiatric providers. Discharge planning. 10/14: increase lithium to 600 BID to achieve therapeutic serum level. 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 10/15: feeling improved on increased lithium dosing. continue current mgmt. check labs 10/19, likely DC same day as 3-day notice matures 10/19. 10/16: Continue current management and treatment plan. 10/17: Continue current management and treatment plan. 10/18: continue tx plan. Patient educated on: diagnosis and medication risk/benefits Reason for continued inpatient stay Substantial Risk for: med/psych decompensation Time Spent With Patient Time: Total time managing care of this patient today _20___ minutes.
[2024-10-18 19:10] VITALS: BP 122/75; PULSE 80; RESP 16; TEMP 36.7; O2SAT 95
[2024-10-19 07:42] VITALS: BP 118/70; PULSE 71; RESP 16; TEMP 36.6; O2SAT 94
[2024-10-19] MEDS: Lithium Carbonate 300 MG CAPSULE 600 MG PO (08:25)
[2024-10-19 09:22] LABS: Lithium 0.55 mmol/L (0.60-1.20)
[2024-10-19 09:29] LABS: Anion Gap 13 (12-20); Blood Urea Nitrogen 13 mg/dL (9-16); Calcium 9.3 mg/dL (8.4-10.2); Carbon Dioxide 27 mmol/L (22-29); Chloride 106 mmol/L (96-108); Creatinine Clr Calc Pharmacy 129.3; Estimated Glomerular Filt Rate > 60; Glucose Random 116 mg/dL (60-115); Potassium 4.6 mmol/L (3.3-5.1); Sodium 141 mmol/L (135-145)
--- NOTE | 2024-10-19 10:26 | PM.PSYDC ---
DS: Providers Provider Date of Service: 10/19/24 Date of admission: 10/11/24 14:52 Primary care physician: David Gimenez MD DS: Diagnosis Discharge Diagnosis (1) Mood disorder: Status: Acute DS: Medications Discharge Medications Home Medications: Previous Rx's ?Medication ?Instructions ?Recorded lithium carbonate 300 mg capsule 600 mg (2 x 300 mg) PO BID 30 days 10/19/24 #120 caps Mental Status Exam Mental Status Exam Narrative: adequately dressed and groomed. cooperative. no PMA/PMR. speech nml rate, amount, loudness, tone, latency. thoughts linear and logical. affect flexible, normo-intense, non-labile. mood excellent. no SI/HI/AVH. Data Data Completed and Pending Completed studies during hospitalization [Text1]: 10/19/24 08:23 Sodium 141 Potassium 4.6 Chloride 106 Carbon Dioxide 27 Anion Gap 13 BUN 13 Creatinine 0.96 Estim Creat Clear Calc 129.3 Estimated GFR > 60 Random Glucose 116 H Calcium 9.3 Minorca 0.55 L DS: Summary Hospital Course Hospital Course: per 10/12 admission note: HPI Subjective Notes: Huynh Warning and Conditional Voluntary Narrative: Patient is a 49-year-old male with history of unspecified mood disorder who self presented to [facility] due to increased anxiety, hopelessness secondary to recent medication changes. Per crisis report, patient was recently discharged from [facility] and was then admitted to [facility] inpatient unit for 2 weeks. Patient reports he was admitted twice recently due to manic behaviors . Patient's brother stated patient left [facility], got into his car and drove to [place]. While in [place], patient undressed himself and got into someone's trailer and went into their bed to keep warm; patient was then brought to [facility]. Patient reports he has been experiencing extreme anxiety, restlessness, shakiness since discharge. He reports poor sleep with only receiving 1-2 hours a night. denies SI/HI. No history of suicide attempts. Denies any substance use. Utox positive for cannabis. Per patient's brother, the past month is the 1st time patient began experiencing psychiatric symptoms. A month ago patient began sporadically posting status's that were bizarre online. Patient telling family that a movie told him to make a play. 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 He also began following police and punched and scratched a window on a police cruiser. Patient has numerous bizarre behaviors (please read crisis report for more examples). During admission assessment, patient presents alert and oriented x3. Calm and cooperative. Patient reports feeling anxious ; patient stated, I had a manic episode for 2 weeks. It was my 1st hospitalization; then I went to [place]. I went home and felt like I could not get my thoughts together. I just kept waking up with anxiety and depression. I then came here after reaching out to my family . Patient reports he can not recall any other names of the medications that he was previously prescribed at the other 2 hospitalizations. Prescription monitoring does not show any prescriptions. Patient is able to recall certain bizarre behaviors mentioned in crisis report however, reports he does not know why he behaved that way. Patient reports he does not have a history of a mental illness and symptoms began a month ago; he is unaware of any precipitant. Patient reports he does not have outpatient psychiatric providers. Denies SI/HI/VH/AH. Patient signed ITZ for [facility] and [facility] to obtain collateral. Past Psychiatric History: Two recent inpatient psychiatric admissions ([facility] and [facility]) Does not have outpatient psychiatric providers Currently not on any psychiatric medications Denies history of self-injurious behavior or suicide attempts. Medical Evaluation Reviewed: Yes PMFSH Family History: Denies Social History: Lives alone. . Two kids (12 and 25 y/o). Unemployed. Associates degree. Substance History: Denies Trauma History: Denies Precis: Patient is a 49-year-old male with history of unspecified mood disorder who self presented to [facility] due to increased anxiety, hopelessness secondary to recent medication changes. 10/12: Start Minorca 300mg PO BID;risks/benefits reviewed. pt agreed to trial. Referral to outpatient psychiatric providers. Discharge planning. 10/14: increase lithium to 600 BID to achieve therapeutic serum level. appears much improved from [facility] in any case. 10/15: feeling improved on increased lithium dosing. continue current mgmt. check labs 10/19, likely DC same day as 3-day notice matures 10/19. 10/16: Continue current management and treatment plan. 10/17: Continue current management and treatment plan. 10/18: continue tx plan. 10/19: feeling very well. lithium level 0.55, BMP reassuring. meds reviewed, reconciled, prescribed. pt discharged as per plan. Time Spent with Patient Time attestation: Total time managing care of this patient today _35___ minutes. Discharge Plan Discharge Anticipated Discharge Date/Time: 10/19/24 11:00 Patient Disposition: Home, Self-Care Discharge Diagnosis: Bipolar I Disorder, MRE Manic Referrals: [facility] Central Registration [Other] - 1 Week (Froy karimi have been referred to [facility] for outpatient services. They will contact you with appointments or you can call them at the number provided for your follow up. Thank you.) David Gimenez MD [Primary Care Provider] - 1 Week (Patient should call on when office reopens for follow up appt. Office of PCP is closed today.) Discharge Medications: New lithium carbonate 300 mg Capsule 600 mg PO BID 30 Days Qty: 120 0RF Discharge Orders: Discharge Order (Routine); Ordered 10/19/24 Ordered By: Sarwat Dueñas Diet: Advance to usual diet Activity on Discharge: As tolerated Stand Alone Forms: Patient Portal Discharge page, Community Support Print Language: Italian Care Plan Goals: remain safe and stable in the outpatient treatment setting Health Concerns: none Plan of Treatment: take medications as prescribed, attend appointments as scheduled Assessment: not at imminent risk of harm to self or others Discharge Date/Time: 10/19/24 11:05
--- NOTE | 2024-10-19 12:13 | PC.NURSE ---
Patient easily engaged. Reports mood is stable, denies depression or sadness, denies SI/HI plan or intent. Denies perceptual disturbances, no overt psychosis or expressed delusions. Denies racing thoughts or confusion. Plan to return to home. Discharge paperwork reviewed with patient, reports understanding. Aftercare appointments reviewed with patient, reports understanding. Medication instructions reviewed with patient, reports understanding. All belongings taken with patient. Crisis numbers provided.
== END 2024-10-19 11:05 | disposition home or self-care (01) | DRG 753 ==
LOC: HO.ED 10-11 09:32 → HO.PADLT16 10-11 14:56
PROVIDERS: Admitting Provider Registered Nurse; Emergency Provider Emergency Medicine Emergency Medical Services; PCP Internal Medicine; Visit Provider Psychiatry & Neurology Psychiatry
DX: F31.10 Bipolar disorder, current episode manic without psychotic features, unspecified (principal); Z79.899 Other long term (current) drug therapy
CPT/HCPCS: 36415; 80048; 80053; 80061; 80178; 80307; 81003; 85025; 99285

== ENCOUNTER → 2024-10-11 14:52 | Outpatient (BNV) | payer OTHER, SELFPAY | PROVIDERS: Admitting Provider Registered Nurse; Emergency Provider Emergency Medicine Emergency Medical Services; PCP Internal Medicine; Visit Provider Registered Nurse | DX: F39 Unspecified mood [affective] disorder (principal) | CPT/HCPCS: 99231; 99232; 99233 ==

== ENCOUNTER 2024-10-24 12:40 | Emergency (ER) | payer OTHER, SELFPAY ==
--- NOTE | ~2024-10-24 | CT_ITS ---
CLINICAL HISTORY: blurry vision CT head without contrast. COMPARISON: None FINDINGS: The visualized paranasal sinuses are clear. The mastoid air cells are clear. No calvarial fracture. No evidence for mass or mass effect. No intracranial hemorrhage or abnormal extra-axial fluid collection. No CT evidence of acute infarct. No evidence of hydrocephalus. The basilar cisterns are patent. Posterior fossa appears unremarkable. IMPRESSION: 1. No acute intracranial findings. This document has been electronically signed by: Lennox Lebron MD on 10/24/2024 14:20:14
[2024-10-24 12:48] VITALS: BP 132/87; PULSE 96; RESP 16; TEMP 36.4; O2SAT 97; BMI 40.8
--- NOTE | 2024-10-24 12:50 | ED.GENADULT ---
HPI - General Adult General Chief complaint: Neuro Symptoms/Deficit Stated complaint: Blurry Vision ? [place] Intake Time Seen by Provider: 10/24/24 13:35 Source: patient Mode of arrival: ambulatory Limitations: no limitations History of Present Illness ED Provider: DR. Calderón HPI narrative: 49-year-old male history of bipolar recently was started on lithium to take 600 mg b.i.d. that was increased 3 days ago to 600 mg in the a.m. and 900 mg in the p.m. on the 2nd day of increasing lithium dose patient noticed while he was driving that he had bilateral blurry vision that lasted for about 1 hour then it resolved, patient currently have no headache, no blurry vision, no loss of vision, reports balance gait with no ataxia or feeling dizzy. Related Data Previous Rx's ?Medication ?Instructions ?Recorded lithium carbonate 300 mg capsule 600 mg (2 x 300 mg) PO BID 30 days 10/19/24 #120 caps Allergies Allergy/AdvReac Type Severity Reaction Status Date / Time No Known Allergies Allergy Verified 10/24/24 12:49 [No Known Allergies*] Review of Systems Review of Systems: All other systems are reviewed and are negative Constitutional: Reports as per HPI and Reports no additional constitutional complaints Eyes: Reports as per HPI and Reports no additional eye complaints Reports system reviewed and no additional complaints, except as documented Cardiovascular: Reports as per HPI and Reports no additional cardiovascular complaints Respiratory: Reports as per HPI and Reports no additional respiratory complaints Gastrointestinal: Reports as per HPI and Reports no additional gastrointestinal complaints Genitourinary: Reports no additional female genitourinary complaints Musculoskeletal: Reports no additional musculoskeletal complaints Skin/Breast: Reports system reviewed and no additional complaints, except as docu Psychiatric: Reports no additional psychiatric complaints Endocrine: Reports no additional endocrine complaints Hematologic/Lymphatic: Reports no additional hematologic/lymphatic complaints Allergic/Immunologic: Reports no additional allergic/immunologic complaints Reports system reviewed and no additional complaints, except as documented and Reports Abnormal speech present [facility] Social History Social History Household Members: Children Housing: Apartment Do you presently have visiting nurse or other home services: No Alcohol intake: never Patient Tobacco Use Status: Never used Tobacco Second Hand Smoke Exposure: No Substance Use Type: Marijuana Advance Directives: No Advance Directives Information Provided: No service: No Sexual orientation: Straight/Heterosexual Physical Exam ED Vital Signs: Vital Signs - 24 hr 10/24/24 12:48 10/24/24 14:47 10/24/24 14:49 Temperature 97.6 F 98.3 F 98.3 F Pulse Rate 96 86 86 Respiratory Rate 16 16 16 Blood Pressure 132/87 124/82 124/82 Pulse Oximetry 97 96 96 Oxygen Delivery Method Room Air Room Air Room Air BMI result Body Mass Index 40.8 Vital signs have been reviewed and appear to be correct. Blood pressure elevated. Heart rate normal. Respiratory rate normal. Temperature normal. Oxygen saturation normal. Appearance: Alert. Oriented X3. No acute distress. Head: Normal external exam. Normocephalic. Atraumatic. No Toussaint signs noted. No raccoon eyes noted Eyes: Patient reports no blurry vision, VA right 20/15, left 20/20 bilateral 20/15. General: appearance normal, both eyes and all related structures Visual Araya: normal visual araya by confrontation Alignment and Position: alignment normal and position normal Periorbital: periorbital findings normal Eyelids: Yes eyelids normal Conjunctivae: conjunctivae normal Sclerae: sclerae normal Corneas: corneas normal Pupils: Equal, round and reactive pupils present and Pupil accommodation reflex normal EOM: EOM abnormal (Limited abduction of right eye) and No Nystagmus present Direct Ophthalmoscopy: normal light reflex, no photophobia, no papilledema and fundi normal bilaterally . IOP right 14, left 13. ENT: TM's Normal. Pharynx normal. Uvula midline. Moist mucous membranes. No trismus noted. No drooling noted. No muffled voice noted. Neck: Normal inspection. Neck supple. FROM. No adenopathy. Thyroid Normal. No meningeal signs. No neck mass noted. CVS: Normal heart rate and rhythm. Heart sound normal. No murmurs noted. Pulses normal throughout. Respiratory: No respiratory distress. Painless inspiration. Breath sounds normal. No wheezes/rales/rhonchi noted. Chest nontender. No accessory muscle usage noted or decreased air movement noted. Abdomen: Soft and nontender. Bowel sounds normal in all 4 quadrants. No distention noted. No organomegaly noted. No visible injury noted. Back: No CVA tenderness. Full range of motion noted. Skin: Skin warm and dry. Normal skin color. Normal skin turgor. No rashes/lesions/lacerations noted. Extremities: No lower extremity edema. Extremities exhibit normal range of motion. Extremities nontender. Neuro: Mental status: Normal attention, orientation, memory, and affect. Cranial nerves: Pupils are equal, round and reactive to light, EOMI, visual araya are fall, face is symmetric, facial sensations are normal. Motor examination normal muscle tone, strength to 4 extremities. DTR are +2, planter's are flexor. Sensory exam; normal coordination, no ataxia, gait stable. Cerebellar exam: [id number] and tpxk-ev-wsow is normal. Extrapyramidal system: No tremors, no rigidity with normal facial expressions. Pronator drift not present Course Course Course Narrative: RME: Patient was concerned for leaking toxicity because lithium dose was increased 2 days ago and then started having blurry vision which is improved now. Patient denies any slurred speech, facial droop, paralysis of extremities, nausea, vomiting, seizures, tremors, chest pain, shortness of breath, or loss of consciousness. NIH score is 0. EKG labs including lithium toxic CT head CT scan ordered. Reevaluation(s) Reevaluation #1: Blurry vision that is resolved now. Normal neuro exam, unremarkable labs, lithium level is therapeutic patient was instructed to contact his PCP to repeat lithium level in 1 week. Time: 13:58 Medical Decision Making Differential Diagnosis Differential Diagnoses: The differential diagnosis associated with the presentation includes (Anxiety, lithium toxicity, electrolyte derangement, severe anemia.) Admission/Observation Consideration of admission/observation: Escalation of care including admission/observation considered Lab Data MDM Lab Attestation statement: I reviewed the patient's lab results. 10/24/24 13:11 10/24/24 13:11 Labs: Lab Results 10/24/24 Range/Units 13:11 WBC 10.6 (4.8-10.8) X10*3/uL RBC 4.88 (4.60-5.80) X10*6/uL Hgb 14.8 (14.0-18.0) g/dl Hct 43.5 (42.0-52.0) % MCV 89.1 (80.0-98.0) fL MCH 30.3 (27.0-33.0) pg MCHC 34.0 (31.0-36.0) g/dl RDW 12.6 (11.0-16.0) % Plt Count 291 (160-400) X10*3/uL MPV 9.2 L (9.4-12.4) fL Immature Gran % (Auto) 0.4 (0.0-0.4) % Neut % (Auto) 69.6 (45-73) % Lymph % (Auto) 21.0 (20-40) % Harney % (Auto) 3.9 (2-11) % Eos % (Auto) 3.7 (0-4) % Baso % (Auto) 1.4 (0-2) % Lymph # (Auto) 2.2 (1.2-4.9) X10*3/uL Harney # (Auto) 0.4 (0.1-1.2) X10*3/uL Eos # (Auto) 0.4 (0.0-0.4) X10*3/uL Baso # (Auto) 0.2 (0.0-0.2) X10*3/uL Abs Immat Gran (auto) 0.04 H (0.00-0.03) X10*3/uL Absolute Neuts (auto) 7.4 (2.0-8.3) x10*3/uL Absolute Nucleated RBC 0.000 (0.0-0.012) X10*3/uL Nucleated RBC % (auto) 0.0 (0.0-0.2) /100WBC Sodium 140 (135-145) mmol/L Potassium 4.1 (3.3-5.1) mmol/L Chloride 105 (96-108) mmol/L Carbon Dioxide 27 (22-29) mmol/L Anion Gap 12 (12-20) BUN 11 (9-16) mg/dL Creatinine 1.03 (0.5-1.4) mg/dL Estim Creat Clear Calc 121.8 Estimated GFR > 60 Random Glucose 155 H (60-115) mg/dL Calcium 9.6 (8.4-10.2) mg/dL Magnesium 2.3 (1.6-2.6) mg/dL Total Bilirubin 0.9 (0.0-1.0) mg/dL AST 20 (5-37) U/L ALT 24 (0-40) U/L Alkaline Phosphatase 68 (39-117) U/L Troponin I High Sens < 2.7 (<3.5-35.0) ng/L Total Protein 7.4 (6.5-8.0) g/dL Albumin 4.1 (3.5-5.0) g/dL [place] 0.62 (0.60-1.20) mmol/L Independent Interpretation I performed an independent interpretation of an: CT Scan (Head: No acute intracranial pathology.) Radiology Impression Discussion of test interpretation with radiology: I have reviewed the radiologist's reading. Discharge Plan Discharge Clinical Impression: Blurred vision Patient Disposition: Home, Self-Care Instructions: Blurred Vision (ED) Prescriptions: No Action lithium carbonate 300 mg Capsule 600 mg PO BID 30 Days Qty: 120 0RF Referrals: Henry Clancy [Physician] - Interventions: ED Discharge Assessment Last Done: 10/24/24 14:49 Discharge Date/Time: 10/24/24 14:49 Print Language: Albanian
--- NOTE | 2024-10-24 12:53 | ECG_ITS ---
Test Reason : BLURRED VISION Blood Pressure : / mmHG Vent. Rate : 081 BPM Atrial Rate : 081 BPM P-R Int : 140 ms QRS Dur : 086 ms QT Int : 390 ms P-R-T Axes : 049 -06 025 degrees QTc Int : 453 ms Normal sinus rhythm Minimal voltage criteria for LVH, may be normal variant ( R in aVL ) Borderline ECG No significant changes when compared with the previous EKG of 07 oct 2019 Referred By: Jamie Viera Electronically Signed By:NOLAN SMITH
[2024-10-24 13:17] LABS: MANUAL DIFF FLAG NO
[2024-10-24 13:18] LABS: Basophils Absolute Auto 0.2 X10*3/uL (0.0-0.2); Basophils Percent Auto 1.4 % (0-2); Eosinophils Absolute Auto 0.4 X10*3/uL (0.0-0.4); Eosinophils Percent Auto 3.7 % (0-4); Hematocrit 43.5 % (42.0-52.0); Hemoglobin 14.8 g/dl (14.0-18.0); Imm Gran Abs Auto 0.04 X10*3/uL (0.00-0.03); Imm Gran Pct Auto 0.4 % (0.0-0.4); Lymphocytes Absolute Auto 2.2 X10*3/uL (1.2-4.9); Mean Corpuscular Hemoglobin 30.3 pg (27.0-33.0); Mean Corpuscular Volume 89.1 fL (80.0-98.0); Mean Platelet Volume 9.2 fL (9.4-12.4); Monocytes Absolute Auto 0.4 X10*3/uL (0.1-1.2); Monocytes Percent Auto 3.9 % (2-11); Neutrophils Absolute Auto 7.4 x10*3/uL (2.0-8.3); Neutrophils Percent Auto 69.6 % (45-73); Platelet Count 291 X10*3/uL (160-400); Red Blood Count 4.88 X10*6/uL (4.60-5.80); Red Cell Distribution Width 12.6 % (11.0-16.0); White Blood Count 10.6 X10*3/uL (4.8-10.8)
[2024-10-24 13:32] LABS: Lithium 0.62 mmol/L (0.60-1.20)
[2024-10-24 13:39] LABS: Alanine Aminotransferase 24 U/L (0-40); Albumin Level 4.1 g/dL (3.5-5.0); Alkaline Phosphatase 68 U/L (39-117); Anion Gap 12 (12-20); Aspartate Amino Transferase 20 U/L (5-37); Bilirubin Total 0.9 mg/dL (0.0-1.0); Blood Urea Nitrogen 11 mg/dL (9-16); Calcium 9.6 mg/dL (8.4-10.2); Carbon Dioxide 27 mmol/L (22-29); Chloride 105 mmol/L (96-108); Creatinine Clr Calc Pharmacy 121.8; Estimated Glomerular Filt Rate > 60; Glucose Random 155 mg/dL (60-115); Magnesium 2.3 mg/dL (1.6-2.6); Potassium 4.1 mmol/L (3.3-5.1); Sodium 140 mmol/L (135-145); Total Protein 7.4 g/dL (6.5-8.0)
[2024-10-24 13:46] LABS: Troponin-I High Sensitivity < 2.7 ng/L (<3.5-35.0)
[2024-10-24 14:47] VITALS: BP 124/82; PULSE 86; RESP 16; TEMP 36.8; O2SAT 96
[2024-10-24 14:49] VITALS: BP 124/82; PULSE 86; RESP 16; TEMP 36.8; O2SAT 96
== END 2024-10-24 14:49 | disposition home or self-care (01) ==
PROVIDERS: Physician Assistant; Emergency Provider Emergency Medicine; PCP Internal Medicine
DX: H53.8 Other visual disturbances (principal); R94.31 Abnormal electrocardiogram [ECG] [EKG]; Z79.899 Other long term (current) drug therapy
CPT/HCPCS: 36415; 70450; 80053; 80178; 83735; 84484; 85025; 93005; 99284

== ENCOUNTER → 2024-10-24 12:53 | Outpatient (BNV) | payer OTHER, SELFPAY | PROVIDERS: Emergency Provider Emergency Medicine; PCP Internal Medicine; Visit Provider Internal Medicine | DX: H53.8 Other visual disturbances (principal) | CPT/HCPCS: 93010 ==

== ENCOUNTER → 2024-10-24 12:55 | Outpatient (BNV) | payer OTHER, SELFPAY | PROVIDERS: Emergency Provider Emergency Medicine; PCP Internal Medicine; Visit Provider Radiology Diagnostic Radiology | DX: H53.8 Other visual disturbances (principal) | CPT/HCPCS: 70450 ==